=== PATIENT | female | born 1995 | race Caucasian/White ===

== ENCOUNTER 2018-05-10 13:17 | Emergency (ER) | payer OTHER ==
[~2018-05-10] VITALS: Ht 157.5 cm; Wt 57.3 kg
[2018-05-10 13:40] VITALS: Ht 157.5 cm; Wt 57.3 kg
[2018-05-10 16:40] VITALS: BP 109/69
== END 2018-05-10 16:40 | disposition home or self-care (01) ==
LOC: ED 13:17
DX: T21.24XA Burn of second degree of lower back, initial encounter (principal); T31.0 Burns involving less than 10% of body surface; X08.8XXA Exposure to other specified smoke, fire and flames, initial encounter; Y93.89 Activity, other specified; Y92.89 Other specified places as the place of occurrence of the external cause; Y99.8 Other external cause status
CPT/HCPCS: 90715